=== PATIENT | male | born 1965 | race Caucasian/White ===

== ENCOUNTER 2024-04-06 09:10 | Inpatient (IN) | payer MEDICARE, MEDICAID ==
[2024-04-06 09:55] LABS: #Basophils 0.03 10x3/uL (0.0-0.2); #Eosinphils 0.14 10x3/uL (0.0-0.5); #Monocytes 0.45 10x3/uL (0.0-1.1); #Neutrophils 3.17 10x3/uL (1.5-8.4); %Basophils 0.7 % (0.0-2.0); %Eosinophils 3.2 % (0.0-6.0); %Monocytes 10.3 % (0.0-10.0); %Neutrophils 72.3 % (40.0-75.0); Hematocrit 33.9 % (38.8-50.0); Mean Corpuscular HGB CONC 32.4 g/dL (32.0-36.0); Mean Corpuscular Hemoglobin 33.1 pg (27.0-33.0); Mean Corpuscular Volume 102.1 fL (81.2-95.1); RBC Distribution Width 15.6 % (11.5-14.5); Red Blood Cell (RBC) Count 3.32 10x6/uL (4.32-5.72); White Blood Cell (WBC) Count 4.4 10x3/uL (3.5-10.5)
[2024-04-06 09:58] LABS: Mean Platelet Volume 11.3 fL (7.4-10.4); Platelet Count 62 10x3/uL (150-450)
[2024-04-06] MEDS ORDERED: Lactulose 20 GM (30 mL) UDCUP ONE (10:03)
[2024-04-06 10:08] LABS: ALT (SGPT) 42 U/L (8-55); AST (SGOT) 43 U/L (5-34); Albumin 3.3 g/dL (3.5-5.0); Alkaline Phosphatase 126 U/L (40-110); Anion Gap 13 mmol/L (10-20); BUN (Urea Nitrogen) 19 mg/dL (8.4-25.7); Bilirubin, Total 1.7 mg/dL (0.2-1.2); Calc. Creatinine Clearance 0 mL/min (70-130); Calcium 8.6 mg/dL (7.8-10.44); Carbon Dioxide 22 mmol/L (22-29); Chloride 105 mmol/L (98-107); Estimated GFR 61; Globulin 3.2 g/dL (2.4-3.5); Glucose 176 mg/dL (70-105); Lipase 32 U/L (8-78); Magnesium 2.1 mg/dL (1.6-2.6); Potassium 4.4 mmol/L (3.5-5.1); Protein, Total 6.5 g/dL (6.0-8.3); Sodium 136 mmol/L (136-145)
[2024-04-06 10:10] LABS: Troponin I Less than 0.010 ng/mL (< 0.028)
[2024-04-06] MEDS ORDERED: traMADol HCl 50 MG TAB PO PRN (10:47)
[2024-04-06] MEDS ORDERED: Ondansetron PF 4 MG/2 ML Vial IVP PRN (10:47)
[2024-04-06] MEDS ORDERED: Acetaminophen 325 MG TAB PO PRN (10:47)
[2024-04-06] MEDS ORDERED: LACTULOSE PR PRN (11:23)
[2024-04-06] MEDS ORDERED: SODIUM CHLORIDE 0.9% PR PRN (11:23)
[2024-04-06 11:49] VITALS: BMI 19.0
[2024-04-06] MEDS ORDERED: Lactulose 20 GM (30 mL) UDCUP PO SCH ×2 (13:00)
[2024-04-06] MEDS: Lactulose 20 GM (30 mL) UDCUP PO SCH ×2 (13:22)
[2024-04-06] MEDS: Ondansetron PF 4 MG/2 ML Vial IVP SCH (13:40)
[2024-04-06] MEDS: LACTULOSE PR SCH (13:40)
[2024-04-06] MEDS: Rifaximin 550 MG TAB PER TUBE SCH ×2 (13:40→22:36)
[2024-04-06] MEDS: SODIUM CHLORIDE 0.9% PR SCH (13:40)
[2024-04-06] MEDS: Pantoprazole 40 MG VIAL IVP SCH ×2 (13:40→22:14)
[2024-04-06] MEDS: Sodium Chloride 0.9% 1,000 ML IV SCH (13:41)
[2024-04-06] MEDS: Lactulose 20 GM (30 mL) UDCUP PER TUBE SCH (22:35)
[2024-04-07 04:09] LABS: INR-International Normal Ratio 1.3; Prothrombin Time 13.4 sec (9.5-12.1)
[2024-04-07 04:13] LABS: #Basophils 0.05 10x3/uL (0.0-0.2); #Eosinphils 0.07 10x3/uL (0.0-0.5); #Neutrophils 3.88 10x3/uL (1.5-8.4); %Eosinophils 1.4 % (0.0-6.0); %Lymphocytes 11.7 % (18.0-47.0); %Monocytes 9.8 % (0.0-10.0); %Neutrophils 75.7 % (40.0-75.0); Hematocrit 27.7 % (38.8-50.0); Hemoglobin 9.4 g/dL (13.5-17.5); Mean Corpuscular HGB CONC 33.9 g/dL (32.0-36.0); Mean Corpuscular Hemoglobin 33.9 pg (27.0-33.0); Mean Platelet Volume 10.9 fL (7.4-10.4); Platelet Count 56 10x3/uL (150-450); RBC Distribution Width 15.6 % (11.5-14.5); Red Blood Cell (RBC) Count 2.77 10x6/uL (4.32-5.72); White Blood Cell (WBC) Count 5.1 10x3/uL (3.5-10.5)
[2024-04-07 04:56] LABS: ALT (SGPT) 57 U/L (8-55); AST (SGOT) 75 U/L (5-34); Albumin 2.9 g/dL (3.5-5.0); Alkaline Phosphatase 145 U/L (40-110); Anion Gap 14 mmol/L (10-20); BUN (Urea Nitrogen) 20 mg/dL (8.4-25.7); Bilirubin, Total 3.3 mg/dL (0.2-1.2); Calc. Creatinine Clearance 58 mL/min (70-130); Calcium 8.1 mg/dL (7.8-10.44); Carbon Dioxide 20 mmol/L (22-29); Chloride 109 mmol/L (98-107); Estimated GFR 69; Globulin 2.6 g/dL (2.4-3.5); Glucose 136 mg/dL (70-105); Potassium 3.9 mmol/L (3.5-5.1); Protein, Total 5.5 g/dL (6.0-8.3); Sodium 139 mmol/L (136-145)
[2024-04-07] MEDS: Lactulose 20 GM (30 mL) UDCUP PER TUBE SCH (18:54)
[2024-04-08 04:13] LABS: #Basophils 0.05 10x3/uL (0.0-0.2); #Eosinphils 0.03 10x3/uL (0.0-0.5); #Monocytes 0.66 10x3/uL (0.0-1.1); #Neutrophils 3.55 10x3/uL (1.5-8.4); %Eosinophils 0.6 % (0.0-6.0); %Lymphocytes 17.2 % (18.0-47.0); %Monocytes 12.6 % (0.0-10.0); Hematocrit 28.4 % (38.8-50.0); Hemoglobin 9.8 g/dL (13.5-17.5); Mean Corpuscular HGB CONC 34.5 g/dL (32.0-36.0); Mean Corpuscular Hemoglobin 33.8 pg (27.0-33.0); Mean Corpuscular Volume 97.9 fL (81.2-95.1); Mean Platelet Volume 10.3 fL (7.4-10.4); Platelet Count 66 10x3/uL (150-450); RBC Distribution Width 15.6 % (11.5-14.5); White Blood Cell (WBC) Count 5.2 10x3/uL (3.5-10.5)
[2024-04-08 04:33] LABS: ALT (SGPT) 55 U/L (8-55); AST (SGOT) 53 U/L (5-34); Albumin 2.9 g/dL (3.5-5.0); Alkaline Phosphatase 148 U/L (40-110); Anion Gap 13 mmol/L (10-20); BUN (Urea Nitrogen) 19 mg/dL (8.4-25.7); Bilirubin, Total 1.8 mg/dL (0.2-1.2); Calc. Creatinine Clearance 59 mL/min (70-130); Calcium 8.7 mg/dL (7.8-10.44); Carbon Dioxide 20 mmol/L (22-29); Chloride 107 mmol/L (98-107); Estimated GFR 70; Glucose 110 mg/dL (70-105); Potassium 4.3 mmol/L (3.5-5.1); Protein, Total 5.9 g/dL (6.0-8.3); Sodium 136 mmol/L (136-145)
[2024-04-08 07:43] VITALS: TEMP 97.8
[2024-04-08] MEDS: Rifaximin 550 MG TAB PO SCH (09:43)
[2024-04-08] MEDS: Lactulose 20 GM (30 mL) UDCUP PO SCH (09:44)
[2024-04-08 10:12] VITALS: BP 137/75
[2024-04-08] MEDS ORDERED: Lactulose 20 GM (30 mL) UDCUP PO SCH (15:00)
== END 2024-04-08 14:55 | DRG 443 ==
LOC: CSHERS 09:10 → CSHTELE 11:38
PROVIDERS: ADMIT Family Medicine; ATTEND Family Medicine
DX: K76.82 Hepatic encephalopathy (principal); K75.81 Nonalcoholic steatohepatitis (NASH); N18.30 Chronic kidney disease, stage 3 unspecified; D63.1 Anemia in chronic kidney disease; D69.6 Thrombocytopenia, unspecified; Z79.899 Other long term (current) drug therapy
CPT/HCPCS: 36415; 70450; 74018; 80053; 82140; 83605; 83690; 83735; 84145; 84484; 85025; 85610; 93005; J2405; J2470

== ENCOUNTER 2024-04-29 06:53 | Inpatient (IN) | payer MEDICARE, MEDICAID ==
[2024-04-29 08:35] LABS: #Basophils 0.07 10x3/uL (0.0-0.2); #Eosinophils 0.28 10x3/uL (0.0-0.5); #Monocytes 0.63 10x3/uL (0.0-1.1); #Neutrophils 4.59 10x3/uL (1.5-8.4); %Basophils 1.1 % (0.0-2.0); %Eosinophils 4.3 % (0.0-6.0); %Lymphocytes 12.9 % (18.0-47.0); %Monocytes 9.8 % (0.0-10.0); %Neutrophils 71.3 % (40.0-75.0); Hematocrit 39.4 % (38.8-50.0); Hemoglobin 13.6 g/dL (13.5-17.5); Mean Corpuscular HGB CONC 34.5 g/dL (32.0-36.0); Mean Corpuscular Hemoglobin 34.9 pg (27.0-33.0); Mean Platelet Volume 10.4 fL (7.4-10.4); Platelet Count 79 10x3/uL (150-450); RBC Distribution Width 16.1 % (11.5-14.5); White Blood Cell (WBC) Count 6.4 10x3/uL (3.5-10.5)
[2024-04-29 08:43] LABS: Acetaminophen Less than 10 mcg/mL (Less than 10); Alcohol Less than 10.0 mg/dL (Less than 10); Salicylate Less than 8.0 mg/dL (Less than 8.0)
[2024-04-29 08:45] LABS: ALT (SGPT) 60 U/L (8-55); AST (SGOT) 62 U/L (5-34); Albumin 3.6 g/dL (3.5-5.0); Alkaline Phosphatase 144 U/L (40-110); Anion Gap 18 mmol/L (10-20); BUN (Urea Nitrogen) 28 mg/dL (8.4-25.7); Bilirubin, Total 2.5 mg/dL (0.2-1.2); Calc. Creatinine Clearance 0 mL/min (70-130); Calcium 9.8 mg/dL (7.8-10.44); Carbon Dioxide 20 mmol/L (22-29); Chloride 104 mmol/L (98-107); Estimated GFR 44; Globulin 3.8 g/dL (2.4-3.5); Glucose 139 mg/dL (70-105); Protein, Total 7.4 g/dL (6.0-8.3); Sodium 137 mmol/L (136-145)
[2024-04-29] MEDS ORDERED: Iopamidol 300 61% 100 ML VIAL FS ONE (10:19)
[2024-04-29 11:04] LABS: Bilirubin Neg (Negative); Blood, Urine 10 (Negative); Clarity Cloudy (Clear); Glucose, Urine (Dipstick) Normal (Negative); Ketone, Urine Negative (Negative); Leukocyte 100 (Negative); Nitrite Positive (Negative); Protein, Urine (Dipstick) 30 mg/dl (Neg-Trace); Specific Gravity, Urine 1.015 (1.005-1.030); Urobilinogen Normal mg/dL (Less than 2)
[2024-04-29 11:10] LABS: Amphetamine Not Detected (NotDetected); Barbiturates Screen Not Detected (NotDetected); Benzodiazepine Screen Not Detected (NotDetected); Cocaine Metabolite Screen Not Detected (NotDetected); Methadone Not Detected (NotDetected); Methamphetamine Not Detected (NotDetected); Opiate Screen Not Detected (NotDetected); Oxycodone Screen Not Detected (NotDetected); Phencyclidine (PCP) Not Detected (NotDetected); THC/Cannabinoid Screen Not Detected (NotDetected); Tricyclic Screen Not Detected (NotDetected)
[2024-04-29 11:26] LABS: Bacteria/HPF 4+ HPF (None Seen); CAUTI Indications for Culture Alt mental st,lethar; RBC/HPF 0-3 HPF (0-3); Squamous Epithelial 0-3 HPF (0-3); WBC/HPF 21-50 HPF (0-3)
[2024-04-29 11:27] LABS: Urine Culture Reflex Yes Yes
[2024-04-29] MEDS ORDERED: cefTRIAXone\\ROCEPHIN 1 GM in Sodium Chloride 0.9% 100 ML IVPB SCH (12:00)
[2024-04-29] MEDS ORDERED: cefTRIAXone (ROCEPHIN) 1 GM VIAL ONE (12:07)
[2024-04-29] MEDS ORDERED: Sodium Chloride 0.9% 100 ML ONE (12:08)
[2024-04-29] MEDS ORDERED: Acetaminophen 650 MG Suppository PR PRN (13:13)
[2024-04-29] MEDS ORDERED: Ondansetron ODT 4 MG TAB PO PRN (13:13)
[2024-04-29] MEDS ORDERED: Acetaminophen 325 MG TAB PO PRN (13:13)
[2024-04-29] MEDS ORDERED: Lactulose 20 GM (30 mL) UDCUP ONE (14:01)
[2024-04-29 15:18] VITALS: BMI 21.9
[2024-04-29] MEDS: Lactulose 20 GM (30 mL) UDCUP PO SCH ×2 (16:06→21:02)
[2024-04-29 18:47] LABS: Anion Gap 17 mmol/L (10-20); BUN (Urea Nitrogen) 27 mg/dL (8.4-25.7); Calc. Creatinine Clearance 43 mL/min (70-130); Calcium 8.5 mg/dL (7.8-10.44); Carbon Dioxide 15 mmol/L (22-29); Chloride 106 mmol/L (98-107); Estimated GFR 52; Glucose 225 mg/dL (70-105); Potassium 4.8 mmol/L (3.5-5.1); Sodium 133 mmol/L (136-145)
[2024-04-29] MEDS: Albumin 25% 25 GM (100 mL) BOT IVPB SCH (19:07)
[2024-04-29] MEDS: Dicyclomine 20 MG TAB PO SCH (20:51)
[2024-04-29] MEDS: Rifaximin 200 MG TAB PO SCH (20:51)
[2024-04-29] MEDS: Nadolol 40 MG TAB PO SCH (20:52)
[2024-04-29] MEDS ORDERED: Spironolactone 25 MG TAB PO SCH (21:00)
[2024-04-29] MEDS ORDERED: Furosemide 40 MG TAB PO SCH (21:00)
[2024-04-29] MEDS: Heparin 5,000 UNITS/ML VIAL SC SCH (21:04)
[2024-04-29] MEDS: Melatonin 3 MG TAB PO SCH (22:18)
[2024-04-30 04:30] LABS: INR-International Normal Ratio 1.3; PTT 28.1 sec (22.0-33.0); Prothrombin Time 14.1 sec (9.5-12.1)
[2024-04-30 04:58] LABS: ALT (SGPT) 34 U/L (8-55); AST (SGOT) 34 U/L (5-34); Albumin 3.6 g/dL (3.5-5.0); Alkaline Phosphatase 87 U/L (40-110); Anion Gap 12 mmol/L (10-20); BUN (Urea Nitrogen) 25 mg/dL (8.4-25.7); Bilirubin, Direct 0.7 mg/dL (0.1-0.3); Bilirubin, Total 1.6 mg/dL (0.2-1.2); Calc. Creatinine Clearance 53 mL/min (70-130); Calcium 8.2 mg/dL (7.8-10.44); Carbon Dioxide 20 mmol/L (22-29); Chloride 108 mmol/L (98-107); Estimated GFR 67; Glucose 129 mg/dL (70-105); Potassium 4.3 mmol/L (3.5-5.1); Protein, Total 5.7 g/dL (6.0-8.3); Sodium 136 mmol/L (136-145)
[2024-04-30 05:41] LABS: #Basophils 0.05 10x3/uL (0.0-0.2); #Eosinophils 0.09 10x3/uL (0.0-0.5); #Monocytes 0.75 10x3/uL (0.0-1.1); #Neutrophils 2.51 10x3/uL (1.5-8.4); %Basophils 1.2 % (0.0-2.0); %Eosinophils 2.2 % (0.0-6.0); %Lymphocytes 16.6 % (18.0-47.0); %Monocytes 18.3 % (0.0-10.0); %Neutrophils 61.2 % (40.0-75.0); Hematocrit 28.1 % (38.8-50.0); Hemoglobin 9.5 g/dL (13.5-17.5); Mean Corpuscular HGB CONC 33.8 g/dL (32.0-36.0); Mean Corpuscular Hemoglobin 34.7 pg (27.0-33.0); Mean Corpuscular Volume 102.6 fL (81.2-95.1); Mean Platelet Volume 10.7 fL (7.4-10.4); Platelet Count 51 10x3/uL (150-450); RBC Distribution Width 16.4 % (11.5-14.5); Red Blood Cell (RBC) Count 2.74 10x6/uL (4.32-5.72); White Blood Cell (WBC) Count 4.1 10x3/uL (3.5-10.5)
[2024-04-30] MEDS: Pantoprazole DR 40 MG TAB PO SCH (09:16)
[2024-04-30] MEDS: Multivit, Therapeutic 1 TAB PO SCH (09:16)
[2024-04-30] MEDS: cefTRIAXone\\ROCEPHIN 2 GM in Sodium Chloride 0.9% 100 ML IVPB SCH (09:17)
[2024-04-30] MEDS: Iron Polysaccharides Complex 150 MG CAP PO SCH (09:17)
[2024-04-30] MEDS: Floranex 1 GM Packet PO SCH (09:18)
[2024-04-30] MEDS ORDERED: cefTRIAXone\\ROCEPHIN 1 GM in Sodium Chloride 0.9% 100 ML IVPB SCH (12:00)
[2024-04-30 14:42] LABS: Hematocrit 27.7 % (38.8-50.0); Hemoglobin 9.5 g/dL (13.5-17.5); Platelet Count 41 10x3/uL (150-450)
[2024-05-01] MEDS: Albumin 25% 25 GM (100 mL) BOT IVPB SCH (00:39)
[2024-05-01 03:43] LABS: #Basophils 0.03 10x3/uL (0.0-0.2); #Eosinophils 0.07 10x3/uL (0.0-0.5); #Monocytes 0.46 10x3/uL (0.0-1.1); #Neutrophils 1.97 10x3/uL (1.5-8.4); %Eosinophils 2.3 % (0.0-6.0); %Lymphocytes 15.6 % (18.0-47.0); %Monocytes 15.3 % (0.0-10.0); %Neutrophils 65.5 % (40.0-75.0); Hematocrit 25.7 % (38.8-50.0); Hemoglobin 8.8 g/dL (13.5-17.5); Mean Corpuscular HGB CONC 34.2 g/dL (32.0-36.0); Mean Corpuscular Hemoglobin 34.9 pg (27.0-33.0); Mean Platelet Volume 11.4 fL (7.4-10.4); Platelet Count 42 10x3/uL (150-450); RBC Distribution Width 15.6 % (11.5-14.5); Red Blood Cell (RBC) Count 2.52 10x6/uL (4.32-5.72)
[2024-05-01 03:58] LABS: Anion Gap 13 mmol/L (10-20); BUN (Urea Nitrogen) 20 mg/dL (8.4-25.7); Calc. Creatinine Clearance 72 mL/min (70-130); Calcium 8.1 mg/dL (7.8-10.44); Carbon Dioxide 18 mmol/L (22-29); Chloride 108 mmol/L (98-107); Estimated GFR 98; Glucose 147 mg/dL (70-105); Potassium 4.3 mmol/L (3.5-5.1); Sodium 135 mmol/L (136-145)
[2024-05-01 09:33] LABS: Hematocrit 26.7 % (38.8-50.0); Platelet Count 41 10x3/uL (150-450)
[2024-05-01] MEDS: Pantoprazole 40 MG VIAL IVP SCH ×2 (10:26→20:31)
[2024-05-01 23:00] VITALS: BP 132/67; TEMP 98.1
== END 2024-05-01 21:24 | DRG 441 ==
LOC: CSHERS 06:53 → CSHTELE 14:40 → OBSVTOIN 04-30 11:12
PROVIDERS: ADMIT Family Medicine; ATTEND Family Medicine
PROC: 30233J1 Transfusion of Nonautologous Serum Albumin into Peripheral Vein, Percutaneous Approach (ICD-10-PCS; principal; 2024-04-29)
DX: K76.82 Hepatic encephalopathy (principal); K76.7 Hepatorenal syndrome; I85.10 Secondary esophageal varices without bleeding; N39.0 Urinary tract infection, site not specified; K50.90 Crohn's disease, unspecified, without complications; N17.9 Acute kidney failure, unspecified; R18.8 Other ascites; D64.9 Anemia, unspecified; D69.6 Thrombocytopenia, unspecified; K75.81 Nonalcoholic steatohepatitis (NASH); K74.60 Unspecified cirrhosis of liver; Z90.49 Acquired absence of other specified parts of digestive tract; Z88.8 Allergy status to other drugs, medicaments and biological substances; Z91.018 Allergy to other foods; Z82.49 Family history of ischemic heart disease and other diseases of the circulatory system
CPT/HCPCS: 36415; 70450; 71045; 74177; 80048; 80053; 80076; 80306; 80307; 81001; 82140; 83605; 85025; 85610; 85730; 87040; 87077; 87086; 87186; 93005; 96375; 96376; G0378; J0696; J2470; P9047; Q9967

== ENCOUNTER 2024-05-27 10:24 | Emergency (ER) | payer MEDICARE, MEDICAID ==
[2024-05-27 12:13] LABS: ALT (SGPT) 43 U/L (8-55); AST (SGOT) 47 U/L (5-34); Albumin 3.8 g/dL (3.5-5.0); Alkaline Phosphatase 106 U/L (40-110); Anion Gap 16 mmol/L (10-20); BUN (Urea Nitrogen) 24 mg/dL (8.4-25.7); Bilirubin, Total 3.4 mg/dL (0.2-1.2); Calc. Creatinine Clearance 0 mL/min (70-130); Calcium 9.5 mg/dL (7.8-10.44); Carbon Dioxide 20 mmol/L (22-29); Chloride 105 mmol/L (98-107); Estimated GFR 57; Globulin 3.1 g/dL (2.4-3.5); Glucose 127 mg/dL (70-105); Potassium 4.2 mmol/L (3.5-5.1); Protein, Total 6.9 g/dL (6.0-8.3); Sodium 137 mmol/L (136-145)
[2024-05-27 12:16] LABS: #Basophils 0.06 10x3/uL (0.0-0.2); #Eosinophils 0.38 10x3/uL (0.0-0.5); #Monocytes 0.86 10x3/uL (0.0-1.1); #Neutrophils 5.92 10x3/uL (1.5-8.4); %Basophils 0.7 % (0.0-2.0); %Eosinophils 4.7 % (0.0-6.0); %Lymphocytes 9.8 % (18.0-47.0); %Monocytes 10.7 % (0.0-10.0); %Neutrophils 73.4 % (40.0-75.0); Hematocrit 36.3 % (38.8-50.0); Hemoglobin 12.6 g/dL (13.5-17.5); Mean Corpuscular HGB CONC 34.7 g/dL (32.0-36.0); Mean Corpuscular Hemoglobin 36.3 pg (27.0-33.0); Mean Corpuscular Volume 104.6 fL (81.2-95.1); Mean Platelet Volume 11.1 fL (7.4-10.4); Platelet Count 61 10x3/uL (150-450); RBC Distribution Width 15.5 % (11.5-14.5); Red Blood Cell (RBC) Count 3.47 10x6/uL (4.32-5.72); White Blood Cell (WBC) Count 8.1 10x3/uL (3.5-10.5)
[2024-05-27 12:23] LABS: Troponin I Less than 0.010 ng/mL (< 0.028)
== END 2024-05-27 14:20 | disposition home or self-care (01) ==
LOC: CSHERS 10:24
DX: K74.60 Unspecified cirrhosis of liver (principal); R41.82 Altered mental status, unspecified
CPT/HCPCS: 36415; 70450; 71045; 80053; 82140; 84484; 85025; 93005

== ENCOUNTER 2024-05-30 15:07 | Inpatient (IN) | payer MEDICARE, MEDICAID ==
[2024-05-30 16:02] LABS: #Basophils 0.08 10x3/uL (0.0-0.2); #Monocytes 0.77 10x3/uL (0.0-1.1); #Neutrophils 6.01 10x3/uL (1.5-8.4); %Lymphocytes 9.3 % (18.0-47.0); %Neutrophils 77.9 % (40.0-75.0); Hematocrit 36.1 % (38.8-50.0); Hemoglobin 12.9 g/dL (13.5-17.5); Mean Corpuscular HGB CONC 35.7 g/dL (32.0-36.0); Mean Corpuscular Hemoglobin 36.3 pg (27.0-33.0); Mean Corpuscular Volume 101.7 fL (81.2-95.1); Mean Platelet Volume 11.7 fL (7.4-10.4); Platelet Count 64 10x3/uL (150-450); RBC Distribution Width 14.6 % (11.5-14.5); Red Blood Cell (RBC) Count 3.55 10x6/uL (4.32-5.72); White Blood Cell (WBC) Count 7.7 10x3/uL (3.5-10.5)
[2024-05-30 16:18] LABS: Acetaminophen Less than 10 mcg/mL (Less than 10); Alcohol Less than 10.0 mg/dL (Less than 10); Lipase 31 U/L (8-78); Salicylate Less than 8.0 mg/dL (Less than 8.0)
[2024-05-30 16:21] LABS: Troponin I Less than 0.010 ng/mL (< 0.028)
[2024-05-30 16:23] LABS: Macrocytosis SLIGHT = 6-15 cells (100X) (0-5/hpf); Platelet Adequacy Comment Platelets Decreased
[2024-05-30 16:28] LABS: Bilirubin Neg (Negative); Blood, Urine Negative (Negative); Clarity Clear (Clear); Glucose, Urine (Dipstick) Normal (Negative); Ketone, Urine Negative (Negative); Leukocyte Negative (Negative); Nitrite Negative (Negative); Protein, Urine (Dipstick) Negative (Neg-Trace); Specific Gravity, Urine 1.005 (1.005-1.030); Urobilinogen Normal mg/dL (Less than 2)
[2024-05-30 16:28] LABS: ALT (SGPT) 48 U/L (8-55); Albumin 4.2 g/dL (3.5-5.0); Alkaline Phosphatase 129 U/L (40-110); Anion Gap 19 mmol/L (10-20); BUN (Urea Nitrogen) 20 mg/dL (8.4-25.7); Bilirubin, Total 2.8 mg/dL (0.2-1.2); Calc. Creatinine Clearance 0 mL/min (70-130); Calcium 9.9 mg/dL (7.8-10.44); Carbon Dioxide 18 mmol/L (22-29); Chloride 103 mmol/L (98-107); Estimated GFR 53; Globulin 3.7 g/dL (2.4-3.5); Glucose 120 mg/dL (70-105); Protein, Total 7.9 g/dL (6.0-8.3); Sodium 135 mmol/L (136-145)
[2024-05-30] MEDS ORDERED: Lactulose 20 GM (30 mL) UDCUP ONE (16:32)
[2024-05-30 16:33] LABS: AST (SGOT) 60 U/L (5-34)
[2024-05-30 16:36] LABS: Bacteria/HPF Rare-Few HPF (None Seen); CAUTI Indications for Culture Alt mental st,lethar; RBC/HPF None Seen HPF (0-3); Squamous Epithelial None Seen HPF (0-3); WBC/HPF None Seen HPF (0-3)
[2024-05-30 16:37] LABS: Amphetamine Not Detected (NotDetected); Barbiturates Screen Not Detected (NotDetected); Benzodiazepine Screen Not Detected (NotDetected); Cocaine Metabolite Screen Not Detected (NotDetected); Methadone Not Detected (NotDetected); Methamphetamine Not Detected (NotDetected); Opiate Screen Not Detected (NotDetected); Oxycodone Screen Not Detected (NotDetected); Phencyclidine (PCP) Not Detected (NotDetected); THC/Cannabinoid Screen Not Detected (NotDetected); Tricyclic Screen Not Detected (NotDetected)
[2024-05-30 16:38] LABS: Urine Culture Reflex No No
[2024-05-30 18:00] VITALS: BMI 20.8
[2024-05-30] MEDS ORDERED: traMADol HCl 50 MG TAB PO PRN (18:05)
[2024-05-30] MEDS ORDERED: Ondansetron PF 4 MG/2 ML Vial IVP PRN (18:05)
[2024-05-30] MEDS: Albumin 25% 25 GM (100 mL) BOT IVPB SCH (19:03)
[2024-05-30] MEDS: Lactulose 20 GM (30 mL) UDCUP PO SCH (20:48)
[2024-05-30] MEDS: Rifaximin 550 MG TAB PO SCH (20:53)
[2024-05-31 03:58] LABS: #Basophils 0.05 10x3/uL (0.0-0.2); #Eosinophils 0.21 10x3/uL (0.0-0.5); #Monocytes 0.62 10x3/uL (0.0-1.1); #Neutrophils 3.91 10x3/uL (1.5-8.4); %Basophils 0.9 % (0.0-2.0); %Eosinophils 3.8 % (0.0-6.0); %Lymphocytes 13.4 % (18.0-47.0); %Monocytes 11.1 % (0.0-10.0); %Neutrophils 70.1 % (40.0-75.0); Hematocrit 30.9 % (38.8-50.0); Hemoglobin 11.1 g/dL (13.5-17.5); Mean Corpuscular HGB CONC 35.9 g/dL (32.0-36.0); Mean Corpuscular Hemoglobin 36.6 pg (27.0-33.0); Mean Platelet Volume 11.6 fL (7.4-10.4); Platelet Count 51 10x3/uL (150-450); RBC Distribution Width 14.7 % (11.5-14.5); Red Blood Cell (RBC) Count 3.03 10x6/uL (4.32-5.72); White Blood Cell (WBC) Count 5.6 10x3/uL (3.5-10.5)
[2024-05-31 04:00] LABS: ALT (SGPT) 37 U/L (8-55); AST (SGOT) 37 U/L (5-34); Albumin 4.8 g/dL (3.5-5.0); Alkaline Phosphatase 98 U/L (40-110); Anion Gap 17 mmol/L (10-20); BUN (Urea Nitrogen) 20 mg/dL (8.4-25.7); Calc. Creatinine Clearance 37 mL/min (70-130); Carbon Dioxide 21 mmol/L (22-29); Chloride 105 mmol/L (98-107); Estimated GFR 46; Globulin 2.6 g/dL (2.4-3.5); Glucose 121 mg/dL (70-105); Potassium 3.7 mmol/L (3.5-5.1); Protein, Total 7.4 g/dL (6.0-8.3); Sodium 139 mmol/L (136-145)
[2024-05-31] MEDS ORDERED: Fluticasone Propionate Nasal Spray 16 gm Bottle NASAL PRN (08:45)
[2024-05-31] MEDS ORDERED: Bisacodyl 10 MG SUPP PR PRN (08:45)
[2024-05-31] MEDS: Pantoprazole DR 40 MG TAB PO SCH (10:08)
[2024-05-31] MEDS: Sodium Bicarbonate 75 MEQ, Admixture Fee 1 EACH in Sodium Chloride 0.45% 1,000 ML IV SCH (10:08)
[2024-05-31] MEDS: Lactulose 20 GM (30 mL) UDCUP PO SCH (15:21)
[2024-05-31] MEDS: Melatonin 3 MG TAB PO SCH (21:41)
[2024-06-01 09:01] LABS: #Basophils 0.05 10x3/uL (0.0-0.2); #Eosinophils 0.16 10x3/uL (0.0-0.5); #Monocytes 0.46 10x3/uL (0.0-1.1); #Neutrophils 3.43 10x3/uL (1.5-8.4); %Basophils 1.1 % (0.0-2.0); %Eosinophils 3.4 % (0.0-6.0); %Lymphocytes 12.3 % (18.0-47.0); %Monocytes 9.8 % (0.0-10.0); Hematocrit 31.5 % (38.8-50.0); Hemoglobin 10.7 g/dL (13.5-17.5); Mean Corpuscular Hemoglobin 35.8 pg (27.0-33.0); Mean Corpuscular Volume 105.4 fL (81.2-95.1); Mean Platelet Volume 10.6 fL (7.4-10.4); Platelet Count 45 10x3/uL (150-450); RBC Distribution Width 14.4 % (11.5-14.5); Red Blood Cell (RBC) Count 2.99 10x6/uL (4.32-5.72); White Blood Cell (WBC) Count 4.7 10x3/uL (3.5-10.5)
[2024-06-01 09:14] LABS: Anion Gap 16 mmol/L (10-20); BUN (Urea Nitrogen) 19 mg/dL (8.4-25.7); Carbon Dioxide 24 mmol/L (22-29); Potassium 4.6 mmol/L (3.5-5.1)
[2024-06-01 09:15] LABS: Calc. Creatinine Clearance 50 mL/min (70-130); Calcium 9.7 mg/dL (7.8-10.44); Chloride 103 mmol/L (98-107); Estimated GFR 66; Glucose 152 mg/dL (70-105); Sodium 138 mmol/L (136-145)
[2024-06-01 11:48] VITALS: BP 104/60; TEMP 98.6
== END 2024-06-01 13:32 | DRG 442 ==
LOC: CSHERS 15:07 → CSHTELE 17:14 → OBSVTOIN 05-31 08:45
PROVIDERS: ADMIT Internal Medicine; ATTEND Internal Medicine
DX: K76.82 Hepatic encephalopathy (principal); N17.9 Acute kidney failure, unspecified; Z91.041 Radiographic dye allergy status; Z88.1 Allergy status to other antibiotic agents; Z88.8 Allergy status to other drugs, medicaments and biological substances; Z79.899 Other long term (current) drug therapy; Z91.148 Patient's other noncompliance with medication regimen for other reason
CPT/HCPCS: 36415; 51701; 70450; 71045; 80048; 80053; 80306; 80307; 81001; 82140; 83605; 83690; 84443; 84484; 85025; 93005; 94760; 96374; G0378; P9047